=== PATIENT | male | born 1990 | race Caucasian/White ===

== ENCOUNTER → 2018-07-21 | Outpatient (CLI) | payer OTHER ==
[~2018-07-21] MED LIST: AUGMENTIN 875 M1 TAB PO
[2018-07-21 16:32] LABS: BILIRUBIN NEGATIVE (NEGATIVE); CLARITY CLEAR (CLEAR); COLOR YELLOW (YELLOW); GLUCOSE NEGATIVE (NEGATIVE); KETONE NEGATIVE (NEGATIVE)
[2018-07-21 16:33] LABS: BASO # 0.1 10*3/uL (0.0-0.1); BASO % 0.8 % (0.0-1.0); EOS # 0.1 10*3/uL (0.0-0.4); EOS % 1.6 % (1.0-4.0); HEMATOCRIT 47.9 % (42.0-52.0); HEMOGLOBIN 16.1 g/dl (14.0-18.0); LYMPH # 2.8 10*3/uL (1.3-4.4); LYMPH % 38.1 % (27.0-41.0); MEAN CELL VOLUME 83.6 fl (80.0-94.0); MEAN CORPUSCULAR HGB 28.1 pg (27.0-31.0); MEAN CORPUSCULAR HGB CONC 33.6 g/dl (33.0-37.0); MONO # 0.8 10*3/uL (0.1-1.0); MONO % 10.3 % (3.0-9.0); NEUT # 3.6 10*3/uL (2.3-7.9); NEUT % 48.9 % (47.0-73.0); PLATELET COUNT AUTOMATED 262 10*3/uL (130-400); RED BLOOD COUNT 5.73 10*6/uL (4.50-5.90); RED CELL DISTRI WIDTH 12.4 % (0-14.5); RETICULOCYTE % 1.05 % (0.50-2.50); WHITE BLOOD COUNT 7.3 10*3/uL (4.8-10.8)
[2018-07-21 16:33] LABS: BLOOD NEGATIVE (NEGATIVE); LEUKO ESTERASE NEGATIVE (NEGATIVE); NITRITE NEGATIVE (NEGATIVE); SPECIFIC GRAVITY < 1.005 (1.005-1.030); UROBILINOGEN 0.2 E.U./dl (0.2-1.0)
[2018-07-21 16:40] LABS: BACTERIA TRACE
[2018-07-21 16:54] LABS: ALBUMIN 4.6 gm/dl (3.1-4.5); ALKALINE PHOSPHATASE 89 U/L (45-117); BUN 8 mg/dl (7-24); CHLORIDE 102 mmol/L (98-107); CHOLESTEROL 176 mg/dL (<200); CREATININE 0.95 mg/dL (0.70-1.30); GAMMA GLUTAMYL TRANSPEPTIDASE 11 U/L (15-85); HDL CHOLESTEROL 55 mg/dl (40-60); LDL CHOLESTEROL 101 mg/dL (9-159); SGOT/AST 26 IU/L (3-35); SGPT/ALT 21 U/L (12-78); SODIUM 139 mmol/L (136-145); T3 UPTAKE 34 % (31-39); THYROXINE (T4) TOTAL 13.2 ug/dl (4.5-12.1); TOTAL PROTEIN 8.2 gm/dL (6.4-8.2); TRIGLYCERIDES 100 mg/dl (<150); URIC ACID 6.2 mg/dL (3.5-7.2); VLDL CHOLESTEROL 20 mg/dL (6-40)
[2018-07-21 17:28] LABS: FERRITIN 85.7 ng/mL (22.0-322.0); VITAMIN D, 25-HYDROXY 29.3 ng/mL (30-100)
[2018-07-22 08:11] LABS: RHEUMATOID ARTHRITIS FACTOR <10.0 IU/mL (0.0-13.9)
[2018-07-22 14:11] LABS: ANTI-DSDNA ANTIBODIES 096339 <1 IU/mL (0-9)
[2018-07-22 21:05] LABS: TESTOSTERONE FREE, (DIRECT) 14.5 pg/mL (9.3-26.5)
== END | disposition home or self-care (01) ==
LOC: LAB 16:01
PROVIDERS: Family Medicine
DX: Z12.5 Encounter for screening for malignant neoplasm of prostate (principal); E55.9 Vitamin D deficiency, unspecified; R79.89 Other specified abnormal findings of blood chemistry; R53.83 Other fatigue

== ENCOUNTER → 2023-10-20 | Outpatient (CLI) | payer OTHER ==
[2023-10-20 15:06] LABS: BASO # 0.1 10*3/uL (0.0-0.1); BASO % 0.6 % (0.0-1.0); EOS # 0.1 10*3/uL (0.0-0.4); EOS % 1.3 % (1.0-4.0); HEMATOCRIT 48.9 % (42.0-52.0); LYMPH # 2.5 10*3/uL (1.3-4.4); LYMPH % 32.6 % (27.0-41.0); MEAN CORPUSCULAR HGB 27.5 pg (27.0-31.0); MEAN CORPUSCULAR HGB CONC 33.1 g/dl (33.0-37.0); MEAN PLATELET VOLUME 10.1 fl (9.6-12.3); MONO # 0.7 10*3/uL (0.1-1.0); NEUT # 4.4 10*3/uL (2.3-7.9); NEUT % 56.1 % (47.0-73.0); PLATELET COUNT AUTOMATED 283 10*3/uL (130-400); RED BLOOD COUNT 5.89 10*6/uL (4.50-5.90); RED CELL DISTRI WIDTH 12.5 % (0-14.5); RETICULOCYTE % 1.17 % (0.50-2.50); WHITE BLOOD COUNT 7.8 10*3/uL (4.8-10.8)
[2023-10-20 15:07] LABS: BILIRUBIN Negative (Negative); BLOOD Negative (Negative); CLARITY Clear (Clear); COLOR Yellow (Yellow); GLUCOSE Negative (Negative); KETONE Negative (Negative); LEUKO ESTERASE Negative (Negative); NITRITE Negative (Negative); UROBILINOGEN 0.2 E.U./dl (0.0-1.0)
[2023-10-20 15:33] LABS: ALKALINE PHOSPHATASE 105 U/L (46-116); BUN 9 mg/dl (9-23); CHLORIDE 101 mmol/L (98-107); CHOLESTEROL 189 mg/dL (<200); GAMMA GLUTAMYL TRANSPEPTIDASE 17 U/L (0-73); LDL CHOLESTEROL 111 mg/dL (9-159); POTASSIUM 4.2 mmol/L (3.4-5.1); SGPT/ALT 12 U/L (5-49); T3 UPTAKE 24.8 % (22.4-36.7); THYROXINE (T4) TOTAL 11.6 ug/dl (4.5-10.9); TOTAL PROTEIN 8.2 gm/dL (6.0-8.0); TRIGLYCERIDES 118 mg/dl (<150)
[2023-10-20 15:40] LABS: BACTERIA TRACE
[2023-10-20 15:46] LABS: WBC 0-2 wbc/hpf (0-5)
[2023-10-20 18:51] LABS: VITAMIN D, 25-HYDROXY 32.7 ng/mL (30-100)
== END | disposition home or self-care (01) ==
LOC: LAB 14:45
PROVIDERS: ATTEND Family Medicine
DX: E78.5 Hyperlipidemia, unspecified (principal); E55.9 Vitamin D deficiency, unspecified; R79.89 Other specified abnormal findings of blood chemistry; R53.83 Other fatigue; R74.8 Abnormal levels of other serum enzymes